=== PATIENT | male | born 1950 | race Two or more races ===

== ENCOUNTER 2021-06-25 05:59 | Inpatient (IN) | payer MEDICARE, OTHER ==
[~2021-06-25] VITALS: Ht 172.7 cm; Wt 49.9 kg
[2021-06-25 09:45] VITALS: BP 132/74
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
[2021-06-25] MEDS ORDERED: BLOOD SUGAR DIAGNOSTIC 1 EACH STRIP IN ONE (11:00)
[2021-06-25] MEDS ORDERED: LORA-259 PO (12:11)
[2021-06-25] MEDS ORDERED: LISI20TA30 PO (12:11)
[2021-06-25] MEDS ORDERED: HYDR-4303 PO (12:11)
[2021-06-25] MEDS ORDERED: QUET25TA PO (12:11)
[2021-06-25] MEDS: HYDROCODONE/APAP 5/325MG TABLET PO PRN ×2 (12:16→19:27)
[2021-06-25] MEDS ORDERED: LACT10SO3 PO (12:23)
[2021-06-25] MEDS: MAGNESIUM HYDROXIDE 30 ML UDC PO PRN (12:40)
[2021-06-25] MEDS: LORAZEPAM 0.5 MG TABLET PO PRN ×3 (13:57→23:03)
[2021-06-25 16:00] VITALS: BP 156/96
--- NOTE | 2021-06-25 19:27 | NUR ---
GPS RN NOTE PATIENT C/O 10/10 BACK PAIN. GIVEN NORCO 5/325 PRN FOR PAIN. WILL REASSESS.
[2021-06-25 20:00] VITALS: BP 161/96
[2021-06-25] MEDS: TEMAZEPAM 7.5 MG CAPSULE PO PRN (22:05)
--- NOTE | 2021-06-25 22:05 | NUR ---
gps rn note given Temazepam 7.5 at this time per patient request
--- NOTE | 2021-06-25 23:03 | NUR ---
gps rn note patient requested for his ativan. reports feeling anxious. given ativan 0.5.
[2021-06-26] MEDS: HYDROCODONE/APAP 5/325MG TABLET PO PRN ×3 (01:35→14:43)
--- NOTE | 2021-06-26 01:38 | NUR ---
gps rn note patient woke up c/o pain10/10. given norco 5/325. will reassess.
[2021-06-26] MEDS: LACTULOSE 10 G/15 ML UDC (PYXIS) PO PRN (03:48)
--- NOTE | 2021-06-26 03:49 | NUR ---
gps rn note patient requested for stool softener at this time. given the daily dose of lactulose 15 ml PRN. will continue to monitor.
[2021-06-26] MEDS: LORAZEPAM 0.5 MG TABLET PO PRN ×2 (06:19→10:32)
--- NOTE | 2021-06-26 06:19 | NUR ---
gps rn note patient pacing around. restless. requested ativan. given ativan 0.5 mg prn.
[2021-06-26 08:00] VITALS: BP 157/88
[2021-06-26 08:13] LABS: ALBUMIN 4.4 g/dL (3.4-5.0); BILIRUBIN,TOTAL 1.2 mg/dL (0.2-1.0); CALCIUM, SERUM 9.3 mg/dL (8.5-10.1); CREATININE 0.9 mg/dL (0.6-1.3); POTASSIUM 3.8 mmol/L (3.5-5.1); TOTAL PROTEIN, SERUM 8.1 g/dL (6.4-8.2)
[2021-06-26] MEDS: LISINOPRIL (20MG) 20 MG TABLET PO SCH (08:13)
[2021-06-26 08:15] LABS: CHOLESTEROL 195 mg/dL (<200); HDL CHOLESTEROL 96 mg/dL (40-60); LDL 76 mg/dL (0-99); TRIGLYCERIDES 86 mg/dL (30-150)
--- NOTE | 2021-06-26 08:24 | NUR ---
RN NOTES PT C/O GENERALIZED PAIN, SCALE 7/10 SCALE. PRN NORCO 5/325 MG PO GIVEN AT 0821. WILL CONTINUE TO MONITOR AND REASSESS.
--- NOTE | 2021-06-26 10:38 | NUR ---
GPS RN NOTES PT NOTED ANXIOUS AND WALKING AROUND WITH HIS WHEELCHAIR BACK AND FORT TO HIS ROOM AND HALLWAYS. PRN ATIVAN 0.5MG PO GIVEN AT 1032.
--- NOTE | 2021-06-26 14:45 | NUR ---
RN NOTES PT C/O BACK AND LEFT LEG PAIN, SCALE 6/10 SCALE. PRN NORCO 5/325 MG PO GIVEN AT 1443. WILL CONTINUE TO MONITOR AND REASSESS.
[2021-06-26 16:00] VITALS: BP 153/92
[2021-06-26] MEDS: QUETIAPINE FUMARATE 25 MG TABLET PO SCH (18:55)
[2021-06-26 20:00] VITALS: BP 148/80
[2021-06-26] MEDS: MIRTAZAPINE 15 MG TABLET PO SCH (21:02)
[2021-06-26] MEDS: TEMAZEPAM 7.5 MG CAPSULE PO PRN (21:09)
--- NOTE | 2021-06-26 21:09 | NUR ---
GPS-RN NOTES: INSOMNIA PATIENT C/O INABILITY TO SLEEP. PRN RESTORIL 7.5MG PO GIVEN. WILL CONTINUE TO MONITOR.
[2021-06-27] MEDS: QUETIAPINE FUMARATE 25 MG TABLET PO SCH ×2 (05:05→17:01)
[2021-06-27 08:00] VITALS: BP 144/83
[2021-06-27] MEDS: LISINOPRIL (20MG) 20 MG TABLET PO SCH (08:32)
[2021-06-27] MEDS: MAGNESIUM HYDROXIDE 30 ML UDC PO PRN (08:35)
--- NOTE | 2021-06-27 08:36 | NUR ---
MOM GIVEN. PT COMPLAINS OF CONSTIPATION.
[2021-06-27] MEDS: LACTULOSE 10 G/15 ML UDC (PYXIS) PO PRN (10:14)
--- NOTE | 2021-06-27 10:15 | NUR ---
LACTULOSE GIVEN. PT STILL COMPLAINS OF CONSTIPATION.
--- NOTE | 2021-06-27 10:50 | NUR ---
Initial D/C Plan: Pt plans to be D/C to a senior living facility. SW will work with the pt and the MD regarding appropriate discharge planning. SW will form a safe and proper discharge plan.
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
--- NOTE | 2021-06-27 11:08 | NUR ---
INFORMED DR CRYSTAL OF PT'S PAINFUL CONSTIPATION. DR CRYSTAL ORDERED STAT KUB, MIRALAX 17MG PO HS DAILY UNTIL BM. ORDERS PLACED.
--- NOTE | 2021-06-27 12:03 | NUR ---
D/C Planning: SW was notified that the pt has been accepted to [facility] ([facility]) [[address] [place] [address]; ). Pt agrees with this d/c plan.
[2021-06-27] MEDS: ENSURE ENLIVE CHOC 237 ML CAN PO SCH ×2 (12:54→16:21)
[2021-06-27] MEDS: LORAZEPAM 0.5 MG TABLET PO PRN (14:19)
--- NOTE | 2021-06-27 14:19 | NUR ---
RN NOTE: ANXIETY PT EXHIBITING INCREASED AGITATION AND ANXIETY. MEDICATED WITH ATIVAN 0.5 MG PO PRN
[2021-06-27 16:00] VITALS: BP 145/90
[2021-06-27 20:00] VITALS: BP 146/87
[2021-06-27] MEDS: MIRTAZAPINE 15 MG TABLET PO SCH (21:02)
[2021-06-27] MEDS: TEMAZEPAM 7.5 MG CAPSULE PO PRN (21:02)
[2021-06-27] MEDS ORDERED: POLYETHYLENE GLYCOL 3350 17 GM POWD.PACK PO SCH (22:00)
[2021-06-28] MEDS: HYDROCODONE/APAP 5/325MG TABLET PO PRN ×2 (00:10→11:03)
[2021-06-28] MEDS: LORAZEPAM 0.5 MG TABLET PO PRN ×2 (03:40→13:02)
[2021-06-28] MEDS: QUETIAPINE FUMARATE 25 MG TABLET PO SCH ×2 (06:08→17:04)
[2021-06-28 08:00] VITALS: BP 155/90
[2021-06-28] MEDS: ENSURE ENLIVE CHOC 237 ML CAN PO SCH ×4 (08:15→16:06)
[2021-06-28] MEDS: LISINOPRIL (20MG) 20 MG TABLET PO SCH (08:15)
[2021-06-28] MEDS: DOCUSATE SODIUM 100 MG CAPSULE PO SCH ×3 (08:49→16:06)
--- NOTE | 2021-06-28 09:00 | NUR ---
RN NOTE- PT ALERT ORIENTED TO PERSON PLACE PURPOSE, MAKES NEEDS KNOWN, MED COMPLIANT, PO INTAKE GOOD, PT FOCUS ON BM. STATES NO BM X TWO DAYS. COLACE STARTED. PT DENIES ALL. WITHDRAWN AND COOPERATIVE AMBULATING W FWW IN HALLS
--- NOTE | 2021-06-28 10:45 | NUR ---
RN NOTE- PT C/O CONTINUED CONSTIPATION . NO BM X TWO DAYS. BS HYPOACTIVE. DR DAVIES NOTIFIED. MIRALAX ORDERED ONE TIME DOSE.
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
[2021-06-28] MEDS: POLYETHYLENE GLYCOL 3350 17 GM POWD.PACK PO SCH ×2 (11:03→21:04)
--- NOTE | 2021-06-28 13:03 | NUR ---
RN NOTE- RESTLESSNESS AND ANXIETY. REQUESTED ATIVAN 0.5 MG GIVEN AT THIS TIME
[2021-06-28] MEDS: ACETAMINOPHEN 325 MG TABLET PO PRN (14:52)
[2021-06-28 16:02] VITALS: BP 153/75
[2021-06-28] MEDS: MAG HYDROX/AL HYDROX/SIMETH 30 ML UDC PO PRN (17:04)
--- NOTE | 2021-06-28 17:04 | NUR ---
RN NOTE- DYSPEPSIA NOTED. TOLD PT THAT I THINK HE'S HAVING CRAMPS BECAUSE OF THE STOOL SOFTENERS AND LAXATIVES. MAALOX 30 CC GIVEN
[2021-06-28 20:20] VITALS: BP 138/79
[2021-06-28] MEDS: MIRTAZAPINE 15 MG TABLET PO SCH (21:04)
[2021-06-28] MEDS: SENNOSIDES 8.6 MG TABLET PO SCH (21:04)
[2021-06-28] MEDS: TEMAZEPAM 7.5 MG CAPSULE PO PRN (22:45)
--- NOTE | 2021-06-28 22:46 | NUR ---
GPS-RN NOTES: INSOMNIA PATIENT C/O UNABLE TO SLEEP. PRN RESTORIL 7.5MG PO GIVEN. WILL CONTINUE TO MONITOR.
[2021-06-29] MEDS: ACETAMINOPHEN 325 MG TABLET PO PRN ×2 (06:02→22:34)
[2021-06-29] MEDS: ENSURE ENLIVE CHOC 237 ML CAN PO SCH ×3 (07:34→16:01)
[2021-06-29 08:00] VITALS: BP 154/94
[2021-06-29] MEDS: DOCUSATE SODIUM 100 MG CAPSULE PO SCH ×3 (08:23→16:03)
[2021-06-29] MEDS: LISINOPRIL (20MG) 20 MG TABLET PO SCH (08:23)
[2021-06-29] MEDS: QUETIAPINE FUMARATE 25 MG TABLET PO SCH (08:23)
--- NOTE | 2021-06-29 08:38 | NUR ---
PT COMPLAINS OF PAIN 7. NORCO 5/325 ADMINISTERED. WILL CONTINUE TO MONITOR.
[2021-06-29] MEDS: HYDROCODONE/APAP 5/325MG TABLET PO PRN ×2 (08:39→19:44)
[2021-06-29] MEDS: LORAZEPAM 0.5 MG TABLET PO PRN ×2 (10:31→16:25)
--- NOTE | 2021-06-29 10:35 | NUR ---
RN NOTE: ANXIETY PT EXHIBITING INCREASED AGITATION AND ANXIETY. MEDICATED WITH ATIVAN 0.5 MG PO PRN
[2021-06-29 16:00] VITALS: BP 130/70
--- NOTE | 2021-06-29 16:30 | NUR ---
RN NOTE: ANXIETY PT EXHIBITING INCREASED AGITATION AND ANXIETY. MEDICATED WITH ATIVAN 0.5 MG PO PRN
--- NOTE | 2021-06-29 19:30 | NUR ---
gps rn notes received lying comfortably,able to answer question correctly,ambulate with pushing wheelchair,med compliant per report,denies suicidal ideation,cooperative.will continue to monitor behavior and manage accordingly.
--- NOTE | 2021-06-29 19:44 | NUR ---
gps rn notes c/o mid lower back pain 5/10 on pain scale,norco 5/325mg,1 tab po given as ordered for moderate pain.
[2021-06-29 20:00] VITALS: BP 158/92
[2021-06-29] MEDS: POLYETHYLENE GLYCOL 3350 17 GM POWD.PACK PO SCH (21:11)
[2021-06-29] MEDS: SENNOSIDES 8.6 MG TABLET PO SCH (21:12)
[2021-06-29] MEDS: QUETIAPINE FUMARATE 100 MG TABLET PO SCH (21:15)
[2021-06-29] MEDS: TEMAZEPAM 7.5 MG CAPSULE PO PRN (21:20)
[2021-06-29] MEDS ORDERED: MIRTAZAPINE 15 MG TABLET PO SCH (22:00)
--- NOTE | 2021-06-29 22:34 | NUR ---
gps rn notes awake,c/o back pain,norco is not due yet,okay to have tylenol 650mg po for mild pain
--- NOTE | 2021-06-29 23:30 | NUR ---
gps rn notes patient says is blood sugar is low,accu-check was done and it was 119,snacks provided.
[2021-06-30] MEDS: HYDROCODONE/APAP 5/325MG TABLET PO PRN ×2 (00:52→18:45)
--- NOTE | 2021-06-30 00:52 | NUR ---
gps rn notes c/o mid back pain 7/10 on pain scale,norco 5/325mg,1 tab po given as ordered
[2021-06-30] MEDS: LORAZEPAM 0.5 MG TABLET PO PRN ×3 (04:52→16:23)
--- NOTE | 2021-06-30 04:52 | NUR ---
gps rn notes awake,appears anxious,ativan 0.5mg po given as ordered for anxiety
[2021-06-30 08:00] VITALS: BP 153/90
[2021-06-30] MEDS: ENSURE ENLIVE CHOC 237 ML CAN PO SCH ×3 (08:13→16:24)
[2021-06-30] MEDS: QUETIAPINE FUMARATE 25 MG TABLET PO SCH (08:13)
[2021-06-30] MEDS: DOCUSATE SODIUM 100 MG CAPSULE PO SCH ×3 (08:13→16:23)
[2021-06-30] MEDS: LISINOPRIL (20MG) 20 MG TABLET PO SCH (08:14)
[2021-06-30] MEDS: LACTULOSE 10 G/15 ML UDC (PYXIS) PO PRN (08:16)
--- NOTE | 2021-06-30 08:20 | NUR ---
Utilization Review Note: This tag writer left a detailed clinical review for assigned family caseworker, richard Alvares at [phone]. Authorization number : [id number] authorized so far are 06/23/21 until 06/30/21. Detailed clinical review was left at 0810 on voicemail of assigned family caseworker and more days were requested. Will await call back with approval from family caseworker.
--- NOTE | 2021-06-30 10:50 | NUR ---
gps pump attendant: notes pt still complaining of constipation and abdominal pain despite given laxatives and having a bowel movement. pt requesting for suppository. last kub done 3 days ago, aware of results. dr. mccurdy notified and made aware with order to do ct abd/pelvis with oral contrast. pt made aware and consent signed at 1115 radiology dept aware, spoke to myles and will provide oral contrast as stated. will continue to monitor.
[2021-06-30] MEDS ORDERED: DIATR MEGLU/DIATRIZOATE SODIUM 30 ML BOTTLE (GASTROGRAPHIN) ONE (11:26)
--- NOTE | 2021-06-30 14:01 | NUR ---
Probable cause hearing: Pt.'s 5250 hold was upheld on the grounds of Danger to Self and Gravely Disabled.
--- NOTE | 2021-06-30 15:10 | NUR ---
gps jacket preparer: notes taken down to ct scan via wheelchair accompanied by staff.
[2021-06-30] MEDS ORDERED: IOHEXOL-300 100 ML VIAL IV ONE (15:12)
[2021-06-30] MEDS ORDERED: IV NS 0.9% 250 ML IV ONE (15:13)
--- NOTE | 2021-06-30 15:40 | NUR ---
PER RN DEENA, CT ABDOMEN PELVIS IS WITH ORAL CONTRAST ONLY
--- NOTE | 2021-06-30 15:45 | NUR ---
gps remanufacturing technician: notes back from ct with staff via w/c. dr. murcia at bedside and talking to pt. will continue to monitor.
[2021-06-30 16:00] VITALS: BP 152/96
[2021-06-30] MEDS: ACETAMINOPHEN 325 MG TABLET PO PRN (16:23)
[2021-06-30 19:53] VITALS: BP 139/80
[2021-06-30 20:00] VITALS: BP 139/80
[2021-06-30] MEDS: POLYETHYLENE GLYCOL 3350 17 GM POWD.PACK PO SCH (21:13)
[2021-06-30] MEDS: SENNOSIDES 8.6 MG TABLET PO SCH (21:13)
[2021-06-30] MEDS: MIRTAZAPINE 15 MG TABLET PO SCH (21:14)
[2021-06-30] MEDS: QUETIAPINE FUMARATE 100 MG TABLET PO SCH (22:13)
[2021-07-01] MEDS: HYDROCODONE/APAP 5/325MG TABLET PO PRN ×3 (01:54→22:00)
--- NOTE | 2021-07-01 01:58 | NUR ---
RN NOTE: PAIN PATIENT C/O BACK PAIN 05/20 & REQUESTED TO TAKE NORCO. PRN NORCO 5-325 MG 1 TAB PO ADMINISTERED. VITALS ARE 154/95, 85, 18, 97.3, 97% AT RA. WILL CONTINUE TO MONITOR.
[2021-07-01 08:00] VITALS: BP 155/94
[2021-07-01] MEDS: ENSURE ENLIVE CHOC 237 ML CAN PO SCH ×3 (08:00→17:30)
[2021-07-01] MEDS: LACTULOSE 10 G/15 ML UDC (PYXIS) PO PRN (09:03)
--- NOTE | 2021-07-01 09:03 | NUR ---
given lactulose for c/o severe constipation
[2021-07-01] MEDS: DOCUSATE SODIUM 100 MG CAPSULE PO SCH ×3 (09:38→17:28)
[2021-07-01] MEDS: LISINOPRIL (20MG) 20 MG TABLET PO SCH (09:38)
[2021-07-01] MEDS: QUETIAPINE FUMARATE 100 MG TABLET PO SCH ×2 (09:39→21:01)
--- NOTE | 2021-07-01 10:38 | NUR ---
given dul. supp. kush c/o severe constipation.
[2021-07-01] MEDS ORDERED: BISACODYL SUPP (10 MG) 10 MG/SUPP.RECT SUPP.RECT RC PRN (11:00)
[2021-07-01] MEDS ORDERED: NA PHOS,M-B/NA PHOS,DI-BA 1 EA ENEMA RC PRN (11:00)
--- NOTE | 2021-07-01 11:30 | NUR ---
expeled portion of supp.although advised to hold for 20 minutes,nobm.
[2021-07-01] MEDS: LORAZEPAM 0.5 MG TABLET PO PRN ×2 (13:27→23:53)
--- NOTE | 2021-07-01 13:28 | NUR ---
given ativan for nerves.
--- NOTE | 2021-07-01 15:18 | NUR ---
given norco for back and leg pain.
[2021-07-01 16:00] VITALS: BP 145/85
[2021-07-01 20:16] VITALS: BP 140/74
[2021-07-01] MEDS: MIRTAZAPINE 15 MG TABLET PO SCH (21:01)
[2021-07-01] MEDS: POLYETHYLENE GLYCOL 3350 17 GM POWD.PACK PO SCH (21:04)
[2021-07-01] MEDS: SENNOSIDES 8.6 MG TABLET PO SCH (21:04)
--- NOTE | 2021-07-01 22:00 | NUR ---
prn norco given for pain will continue to monitor.
--- NOTE | 2021-07-02 | NUR ---
prn ativan given for anxiety will continue to monitor.
[2021-07-02 08:00] VITALS: BP 133/91
[2021-07-02] MEDS: ENSURE ENLIVE CHOC 237 ML CAN PO SCH ×3 (09:05→16:10)
[2021-07-02] MEDS: LISINOPRIL (20MG) 20 MG TABLET PO SCH (09:06)
[2021-07-02] MEDS: DOCUSATE SODIUM 100 MG CAPSULE PO SCH ×3 (09:06→16:39)
[2021-07-02] MEDS: QUETIAPINE FUMARATE 100 MG TABLET PO SCH ×2 (09:06→21:11)
[2021-07-02] MEDS: HYDROCODONE/APAP 5/325MG TABLET PO PRN ×3 (09:50→23:16)
[2021-07-02] MEDS: LORAZEPAM 0.5 MG TABLET PO PRN ×3 (09:50→22:23)
--- NOTE | 2021-07-02 11:25 | NUR ---
PIPE BOWL PAINT TRIMMER Notes: Patient complained of Back Pain @ 0950 on 07/02/2021, Patient rated pain as 9/10. Issued Patient PRN [place] 5-325 mg. Reassessed pain @ 1050, patient stated pain had significantly subsided to 1/10 and patient feels comfortable at this time.
--- NOTE | 2021-07-02 11:27 | NUR ---
Additional Notes: Patient stated he felt overwhelmed due to pain and anxious issued patient PRN Ativan 0.5 mg @ 0950 on 07/02/2021. Reassessed patient @ 1050 patient stated he felt much better, less worried at this time, pain has significantly subsided and he feels comfortable.
[2021-07-02 16:00] VITALS: BP 138/78
--- NOTE | 2021-07-02 18:27 | NUR ---
Patient complained of anxiety @ 1814 offered and issued PRN Ativan 0.5 mg @ 1817. Will continue to monitor patient to see effectiveness of PRN.
--- NOTE | 2021-07-02 18:57 | NUR ---
re-evaluating Ativan 0.5 mg give @ 1817, patient stated he feels much better and more relaxed. Patient is now comfortably resting in room and has no complaints.
[2021-07-02 20:00] VITALS: BP 128/69
--- NOTE | 2021-07-02 21:00 | NUR ---
GPS-RN NOTES: PATIENT REFUSED SCHEDULED MIRALAX FOR TONIGHT. PATIENT STATED "I DON'T NEED IT NOW". WILL CONTINUE TO MONITOR.
[2021-07-02] MEDS: MIRTAZAPINE 15 MG TABLET PO SCH (21:11)
[2021-07-02] MEDS: POLYETHYLENE GLYCOL 3350 17 GM POWD.PACK PO SCH (21:11)
[2021-07-02] MEDS: SENNOSIDES 8.6 MG TABLET PO SCH (21:11)
--- NOTE | 2021-07-02 22:23 | NUR ---
GPS-RN NOTES: ANXIETY PATIENT IS ANXIOUS AND RESTLESS. PRN ATIVAN 0.5MG PO GIVEN ORDERED. WILL CONTINUE TO MONITOR FOR PATIENT'S SAFETY.
--- NOTE | 2021-07-02 23:16 | NUR ---
GPS-RN NOTES: BACK PAIN PATIENT C/O UPPER BACK PAIN ON A PAIN SCALE OF 7/10. PRN NORCO 5/25MG PO GIVEN ORDERED. WILL CONTINUE TO MONITOR AND REASSESS.
[2021-07-03] MEDS: TEMAZEPAM 7.5 MG CAPSULE PO PRN ×2 (01:01→23:00)
--- NOTE | 2021-07-03 01:02 | NUR ---
GPS-RN NOTES: INSOMNIA PATIENT C/O INABILITY TO SLEEP. PRN RESTORIL 15MG PO ORDERED PER PT'S REQUEST. WILL CONTINUE TO MONITOR.
[2021-07-03 08:00] VITALS: BP 152/97
[2021-07-03] MEDS: ENSURE ENLIVE CHOC 237 ML CAN PO SCH ×3 (08:02→16:14)
[2021-07-03] MEDS: LISINOPRIL (20MG) 20 MG TABLET PO SCH (08:07)
[2021-07-03] MEDS: QUETIAPINE FUMARATE 100 MG TABLET PO SCH ×2 (08:07→22:08)
[2021-07-03] MEDS: DOCUSATE SODIUM 100 MG CAPSULE PO SCH ×3 (08:07→16:15)
[2021-07-03] MEDS: HYDROCODONE/APAP 5/325MG TABLET PO PRN ×2 (09:31→21:01)
[2021-07-03 16:00] VITALS: BP 145/76
--- NOTE | 2021-07-03 16:15 | NUR ---
PT REFUSED COLACE.
[2021-07-03 20:00] VITALS: BP 157/87
[2021-07-03] MEDS: LORAZEPAM 0.5 MG TABLET PO PRN (20:15)
--- NOTE | 2021-07-03 20:15 | NUR ---
GPS RN NOTE PATIENT REQUESTING ATIVAN. GIVEN ATIVAN 0.5 PRN AT THIS TIME.
--- NOTE | 2021-07-03 21:00 | NUR ---
gps rn notes patient c/o pain in the back 05/20. given norco 5-325 prn. will reassess.
[2021-07-03] MEDS: SENNOSIDES 8.6 MG TABLET PO SCH (22:00)
[2021-07-03] MEDS: POLYETHYLENE GLYCOL 3350 17 GM POWD.PACK PO SCH (22:00)
[2021-07-03] MEDS: MIRTAZAPINE 15 MG TABLET PO SCH (22:08)
--- NOTE | 2021-07-03 22:16 | NUR ---
gps rn note patient refused scheduled 2200 constipation medications. senokot was retured to Retidoc but the miralax powdeered packet had a whole on it hence I was unable to return. will dispose in proper disposal bin.
--- NOTE | 2021-07-03 23:00 | NUR ---
GPS RN NOTE PATIENT REQUESTED SLEEPING MEDICATION GIVEN TEMAZEPAM 15 MG AT THIS TIME.
[2021-07-04] MEDS: LORAZEPAM 0.5 MG TABLET PO PRN ×3 (00:33→20:29)
--- NOTE | 2021-07-04 00:35 | NUR ---
gps rn notes patient reporting having panic attack at this time. seems restless, pacing around. given ativan 0.5 mg at this time. will cont. to monitor.
[2021-07-04] MEDS: HYDROCODONE/APAP 5/325MG TABLET PO PRN ×4 (04:13→23:51)
--- NOTE | 2021-07-04 04:13 | NUR ---
gps rn note patient c/o 7/10 pain, given norco 5-325 at this time. will reassess.
[2021-07-04 08:00] VITALS: BP 142/88
[2021-07-04] MEDS: ENSURE ENLIVE CHOC 237 ML CAN PO SCH ×3 (08:38→16:46)
[2021-07-04] MEDS: FLUVOXAMINE MALEATE 50 MG TABLET PO SCH ×3 (08:39→16:46)
[2021-07-04] MEDS: DOCUSATE SODIUM 100 MG CAPSULE PO SCH ×3 (08:40→16:46)
[2021-07-04] MEDS: QUETIAPINE FUMARATE 100 MG TABLET PO SCH ×2 (08:42→21:26)
[2021-07-04] MEDS: LISINOPRIL (20MG) 20 MG TABLET PO SCH (08:42)
--- NOTE | 2021-07-04 10:28 | NUR ---
gps rn note patient c/o 9/10 pain, given norco 5-325 at this time. will reassess.
--- NOTE | 2021-07-04 11:12 | NUR ---
WOUND CARE CONSULT: RECEIVED REQUEST FOR WOUND CONSULT FROM RN FOR PAINFUL CALLUSES TO FEET, PRESENT ON ADMISSION. RECOMMEND DPM CONSULT. DR CARROLL NOTIFIED. WILL SEE PRN.
--- NOTE | 2021-07-04 14:32 | NUR ---
GPS RN NOTE PATIENT REQUESTING ATIVAN. GIVEN ATIVAN 0.5 PRN AT THIS TIME.
[2021-07-04 16:00] VITALS: BP 151/78
[2021-07-04 20:00] VITALS: BP 132/97
--- NOTE | 2021-07-04 20:00 | NUR ---
awake and alert smiling using the wheelchair to ambulate in the hallway reminded me that he does NOT want any Laxatives tonight Asking for [place] specifically for his back pain informed him he had NORCO at 1800 and to be given Q6 hours due 0000. He was okay with this time. Asked if he could be given his ATIVAN now Ativan given at 20:30. He went to bed at 9PM after the ATIVAN was given.
[2021-07-04] MEDS: TEMAZEPAM 7.5 MG CAPSULE PO PRN (21:26)
[2021-07-04] MEDS: MIRTAZAPINE 15 MG TABLET PO SCH (21:26)
[2021-07-04] MEDS: POLYETHYLENE GLYCOL 3350 17 GM POWD.PACK PO SCH (21:30)
[2021-07-04] MEDS: SENNOSIDES 8.6 MG TABLET PO SCH (21:31)
[2021-07-04 22:21] VITALS: BP 132/76
[2021-07-05] MEDS: ENSURE ENLIVE CHOC 237 ML CAN PO SCH ×3 (07:46→16:11)
[2021-07-05 08:00] VITALS: BP 154/99
[2021-07-05] MEDS: FLUVOXAMINE MALEATE 50 MG TABLET PO SCH ×3 (08:41→16:13)
[2021-07-05] MEDS: LISINOPRIL (20MG) 20 MG TABLET PO SCH (08:41)
[2021-07-05] MEDS: QUETIAPINE FUMARATE 100 MG TABLET PO SCH ×2 (08:42→21:03)
[2021-07-05] MEDS: DOCUSATE SODIUM 100 MG CAPSULE PO SCH ×3 (08:43→16:10)
[2021-07-05] MEDS: HYDROCODONE/APAP 5/325MG TABLET PO PRN ×2 (09:13→21:02)
--- NOTE | 2021-07-05 09:13 | NUR ---
gps rn note patient c/o 7/10 pain, given norco 5-325 at this time. will reassess.
[2021-07-05] MEDS: MAG HYDROX/AL HYDROX/SIMETH 30 ML UDC PO PRN (13:52)
--- NOTE | 2021-07-05 13:52 | NUR ---
GPS RN NOTE. PT COMPLAINS OF INDIGESTION. MAALOX ADMINISTERED. WILL CONTINUE TO MONITOR.
[2021-07-05 16:00] VITALS: BP 132/74
[2021-07-05] MEDS: AMMONIUM LACTATE 227 GM BOTTLE TP SCH (16:15)
[2021-07-05] MEDS: LORAZEPAM 0.5 MG TABLET PO PRN ×2 (18:28→19:42)
--- NOTE | 2021-07-05 18:28 | NUR ---
GPS RN NOTE PT FEELING ANXIOUS, ASKED FOR ATIVAN. ATIVAN ADMINISTERED. WILL CONTINUE TO MONITOR.
[2021-07-05 19:45] VITALS: BP 160/86
[2021-07-05] MEDS: SENNOSIDES 8.6 MG TABLET PO SCH (21:02)
[2021-07-05] MEDS: POLYETHYLENE GLYCOL 3350 17 GM POWD.PACK PO SCH (21:02)
[2021-07-05] MEDS: MIRTAZAPINE 15 MG TABLET PO SCH (21:02)
[2021-07-05] MEDS: TEMAZEPAM 7.5 MG CAPSULE PO PRN (23:40)
[2021-07-06] MEDS: HYDROCODONE/APAP 5/325MG TABLET PO PRN ×3 (05:54→20:02)
[2021-07-06 08:00] VITALS: BP 157/90
[2021-07-06] MEDS: AMMONIUM LACTATE 227 GM BOTTLE TP SCH ×2 (08:07→16:04)
[2021-07-06] MEDS: ENSURE ENLIVE CHOC 237 ML CAN PO SCH ×3 (08:07→16:00)
[2021-07-06] MEDS: LISINOPRIL (20MG) 20 MG TABLET PO SCH (08:08)
[2021-07-06] MEDS: DOCUSATE SODIUM 100 MG CAPSULE PO SCH ×3 (08:09→16:02)
[2021-07-06] MEDS: FLUVOXAMINE MALEATE 50 MG TABLET PO SCH ×3 (08:09→16:02)
[2021-07-06] MEDS: QUETIAPINE FUMARATE 100 MG TABLET PO SCH ×2 (08:09→21:53)
--- NOTE | 2021-07-06 09:56 | NUR ---
gps rn note patient c/o 7/10 pain, given norco 5-325 at this time. will reassess.
[2021-07-06] MEDS: LORAZEPAM 0.5 MG TABLET PO PRN ×3 (11:03→23:36)
--- NOTE | 2021-07-06 11:04 | NUR ---
GPS RN NOTE PT FEELING ANXIOUS, ASKED FOR ATIVAN. ATIVAN ADMINISTERED. WILL CONTINUE TO MONITOR.
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
[2021-07-06] MEDS: MAG HYDROX/AL HYDROX/SIMETH 30 ML UDC PO PRN (12:01)
--- NOTE | 2021-07-06 12:02 | NUR ---
GPS RN NOTE. PT COMPLAINS OF INDIGESTION. MAALOX ADMINISTERED. WILL CONTINUE TO MONITOR.
--- NOTE | 2021-07-06 15:51 | NUR ---
GPS RN NOTE PT FEELING ANXIOUS, ASKED FOR ATIVAN. ATIVAN ADMINISTERED. WILL CONTINUE TO MONITOR
[2021-07-06 16:00] VITALS: BP 152/90
--- NOTE | 2021-07-06 19:39 | NUR ---
RN NOTES: RECEIVED PATIENT AWAKE IN ROOM, NO COMPLAIN OF PAIN AND DISCOMFORT, BED IN LOW POSITION, CALL LIGHTS WITHIN REACH, NO CHANGES IN BEHAVIOR OBSERVED, WILL CONTINUE TO MONITOR.
[2021-07-06 20:34] VITALS: BP 111/62
[2021-07-06] MEDS: MIRTAZAPINE 15 MG TABLET PO SCH (21:52)
[2021-07-06] MEDS: ZOLPIDEM TARTRATE 5 MG TABLET PO PRN (22:28)
[2021-07-06] MEDS: POLYETHYLENE GLYCOL 3350 17 GM POWD.PACK PO SCH (22:40)
[2021-07-06] MEDS: SENNOSIDES 8.6 MG TABLET PO SCH (22:40)
[2021-07-07] MEDS: HYDROCODONE/APAP 5/325MG TABLET PO PRN ×3 (02:13→15:13)
[2021-07-07] MEDS: LORAZEPAM 0.5 MG TABLET PO PRN ×3 (05:38→18:12)
[2021-07-07 08:00] VITALS: BP 150/90
[2021-07-07] MEDS: ENSURE ENLIVE CHOC 237 ML CAN PO SCH ×3 (08:10→16:10)
[2021-07-07] MEDS: FLUVOXAMINE MALEATE 50 MG TABLET PO SCH ×3 (09:10→16:10)
[2021-07-07] MEDS: LISINOPRIL (20MG) 20 MG TABLET PO SCH (09:10)
[2021-07-07] MEDS: DOCUSATE SODIUM 100 MG CAPSULE PO SCH ×3 (09:10→16:10)
[2021-07-07] MEDS: QUETIAPINE FUMARATE 100 MG TABLET PO SCH ×2 (09:10→21:26)
[2021-07-07] MEDS: AMMONIUM LACTATE 227 GM BOTTLE TP SCH ×2 (09:11→16:11)
[2021-07-07 16:00] VITALS: BP 111/73
[2021-07-07 20:10] VITALS: BP 154/80
[2021-07-07] MEDS: MIRTAZAPINE 15 MG TABLET PO SCH (21:25)
[2021-07-07] MEDS: POLYETHYLENE GLYCOL 3350 17 GM POWD.PACK PO SCH (21:25)
[2021-07-07] MEDS: SENNOSIDES 8.6 MG TABLET PO SCH (21:26)
[2021-07-07 21:30] VITALS: BP 128/80
[2021-07-07] MEDS: ZOLPIDEM TARTRATE 5 MG TABLET PO PRN (22:50)
--- NOTE | 2021-07-07 22:52 | NUR ---
GPS-RN NOTES: INSOMNIA PATIENT C/O INABILITY TO SLEEP. PRN AMBIEN 5MG PO ORDERED PER PT'S REQUEST. WILL CONTINUE TO MONITOR.
[2021-07-08 08:00] VITALS: BP 152/98
[2021-07-08] MEDS: ENSURE ENLIVE CHOC 237 ML CAN PO SCH ×3 (08:04→17:15)
[2021-07-08] MEDS: FLUVOXAMINE MALEATE 50 MG TABLET PO SCH ×3 (08:07→17:16)
[2021-07-08] MEDS: DOCUSATE SODIUM 100 MG CAPSULE PO SCH ×3 (08:08→17:16)
[2021-07-08] MEDS: QUETIAPINE FUMARATE 100 MG TABLET PO SCH ×2 (08:08→21:22)
[2021-07-08] MEDS: AMMONIUM LACTATE 227 GM BOTTLE TP SCH ×2 (08:08→17:15)
[2021-07-08] MEDS: LISINOPRIL (20MG) 20 MG TABLET PO SCH (08:08)
[2021-07-08] MEDS: HYDROCODONE/APAP 5/325MG TABLET PO PRN ×2 (08:10→14:24)
[2021-07-08] MEDS: LORAZEPAM 0.5 MG TABLET PO PRN ×2 (09:42→15:29)
[2021-07-08 16:00] VITALS: BP 156/90
[2021-07-08 19:59] VITALS: BP 141/86
[2021-07-08] MEDS: SENNOSIDES 8.6 MG TABLET PO SCH (21:21)
[2021-07-08] MEDS: POLYETHYLENE GLYCOL 3350 17 GM POWD.PACK PO SCH (21:21)
[2021-07-08] MEDS: MIRTAZAPINE 15 MG TABLET PO SCH (21:22)
[2021-07-08] MEDS: ZOLPIDEM TARTRATE 5 MG TABLET PO PRN (22:13)
[2021-07-09] MEDS: HYDROCODONE/APAP 5/325MG TABLET PO PRN ×3 (02:08→14:02)
[2021-07-09 08:00] VITALS: BP 152/89
[2021-07-09] MEDS: ENSURE ENLIVE CHOC 237 ML CAN PO SCH ×3 (08:08→16:20)
[2021-07-09] MEDS: QUETIAPINE FUMARATE 100 MG TABLET PO SCH ×2 (08:11→21:39)
[2021-07-09] MEDS: FLUVOXAMINE MALEATE 50 MG TABLET PO SCH ×3 (08:12→16:21)
[2021-07-09] MEDS: DOCUSATE SODIUM 100 MG CAPSULE PO SCH ×3 (08:12→16:22)
[2021-07-09] MEDS: LISINOPRIL (20MG) 20 MG TABLET PO SCH (08:12)
[2021-07-09] MEDS: AMMONIUM LACTATE 227 GM BOTTLE TP SCH ×2 (08:21→16:22)
[2021-07-09] MEDS: LORAZEPAM 0.5 MG TABLET PO PRN ×2 (10:32→16:21)
[2021-07-09 16:00] VITALS: BP 135/86
[2021-07-09 20:00] VITALS: BP 134/76
[2021-07-09] MEDS: MIRTAZAPINE 15 MG TABLET PO SCH (21:39)
[2021-07-09] MEDS: SENNOSIDES 8.6 MG TABLET PO SCH (21:39)
[2021-07-09] MEDS: POLYETHYLENE GLYCOL 3350 17 GM POWD.PACK PO SCH (21:39)
[2021-07-09] MEDS: ZOLPIDEM TARTRATE 5 MG TABLET PO PRN (22:35)
--- NOTE | 2021-07-09 23:00 | NUR ---
GPS-RN NOTES: INSOMNIA PATIENT C/O INABILITY TO SLEEP. PRN AMBIEN 5MG PO ORDERED PER PT'S REQUEST. WILL CONTINUE TO MONITOR.
[2021-07-10] MEDS: HYDROCODONE/APAP 5/325MG TABLET PO PRN ×4 (02:30→20:14)
[2021-07-10] MEDS: LORAZEPAM 0.5 MG TABLET PO PRN ×4 (06:39→22:26)
--- NOTE | 2021-07-10 06:40 | NUR ---
GPS-RN NOTES: ANXIETY PATIENT IS ANXIOUS AND RESTLESS. PRN ATIVAN 0.5MG PO GIVEN ORDERED. WILL CONTINUE TO MONITOR FOR PATIENT'S SAFETY.
[2021-07-10 08:08] VITALS: BP 144/97
[2021-07-10] MEDS: DOCUSATE SODIUM 100 MG CAPSULE PO SCH ×3 (08:11→16:13)
[2021-07-10] MEDS: ENSURE ENLIVE CHOC 237 ML CAN PO SCH ×3 (08:11→16:13)
[2021-07-10] MEDS: LISINOPRIL (20MG) 20 MG TABLET PO SCH (08:11)
[2021-07-10] MEDS: QUETIAPINE FUMARATE 100 MG TABLET PO SCH ×2 (08:11→21:15)
[2021-07-10] MEDS: FLUVOXAMINE MALEATE 50 MG TABLET PO SCH ×3 (08:12→16:13)
[2021-07-10] MEDS: AMMONIUM LACTATE 227 GM BOTTLE TP SCH ×2 (08:16→16:19)
--- NOTE | 2021-07-10 09:00 | NUR ---
RN NOTE- PT IN BRITT AMBULATING W ASSISTIVE DEVICE, PO INTAKE GOOD, CLEAN SHOWERED GROOMING, MED COMPLIANT , BACK PAIN DECREASED W KIRBY, PT DENIES AL AT PRESENT
--- NOTE | 2021-07-10 11:26 | NUR ---
RN NOTE- C/O ANXIETY. ATIVAN 0.5 MG GIVEN
--- NOTE | 2021-07-10 12:48 | NUR ---
RN NOTE- JEROMY EFFECTIVE
[2021-07-10 16:18] VITALS: BP 151/88
--- NOTE | 2021-07-10 18:15 | NUR ---
RN NOTE- PT W ANXIETY. ATIVAN 0.5 MG GIVEN
[2021-07-10 20:00] VITALS: BP 140/98
[2021-07-10] MEDS: POLYETHYLENE GLYCOL 3350 17 GM POWD.PACK PO SCH ×2 (21:13→21:22)
[2021-07-10] MEDS: SENNOSIDES 8.6 MG TABLET PO SCH (21:14)
[2021-07-10] MEDS: MIRTAZAPINE 15 MG TABLET PO SCH (21:15)
[2021-07-11] MEDS: ZOLPIDEM TARTRATE 5 MG TABLET PO PRN (00:06)
[2021-07-11] MEDS: HYDROCODONE/APAP 5/325MG TABLET PO PRN ×4 (02:38→20:06)
[2021-07-11] MEDS: LORAZEPAM 0.5 MG TABLET PO PRN ×4 (04:25→22:03)
--- NOTE | 2021-07-11 04:40 | NUR ---
CLOSING NOTES: ALERT AND ORIENTATED x3 DRUG SEEKER NORJIN AND ATIVAN. STATES HE HAS A BAD BACK AND THESE MEDICATIONS HELP. HE WILL ASK THE TIMES WHEN HE IS TO RECEIVE THE NEXT PRN MEDICATION AND TELL THE NURSE TO BRING IT IN. HE IS AMBULATING THE CORRIDOR STEADY ONHIS LEGS USINF A WHEEL CHAIR FOR BALANCE AT TIMES. HE IS CLEAN AND NEAT AND COOPERATIVE
[2021-07-11 08:00] VITALS: BP 162/102
[2021-07-11] MEDS: DOCUSATE SODIUM 100 MG CAPSULE PO SCH ×3 (08:13→16:50)
[2021-07-11] MEDS: ENSURE ENLIVE CHOC 237 ML CAN PO SCH ×3 (08:13→16:50)
[2021-07-11] MEDS: QUETIAPINE FUMARATE 100 MG TABLET PO SCH ×2 (08:13→21:04)
[2021-07-11] MEDS: LISINOPRIL (20MG) 20 MG TABLET PO SCH (08:14)
[2021-07-11] MEDS: FLUVOXAMINE MALEATE 50 MG TABLET PO SCH ×3 (08:14→16:50)
[2021-07-11] MEDS: AMMONIUM LACTATE 227 GM BOTTLE TP SCH ×2 (08:16→17:44)
--- NOTE | 2021-07-11 09:00 | NUR ---
RN NOTE- PT QUIET THIS MORNING , MINIMAL INTERACTION, PO INTAKE GOOD, CLEAN SHOWERED GROOMING, MED COMPLIANT , BACK PAIN DECREASED W NORCO, PT DENIES ALL AT PRESENT
--- NOTE | 2021-07-11 10:00 | NUR ---
RN NOTE- ANXIOUSNESS. ATIVAN 0.5 MG GIVEN
[2021-07-11 16:00] VITALS: BP 156/89
--- NOTE | 2021-07-11 16:04 | NUR ---
RN NOTE- RESTLESSNESS. ATIVAN 0.5 MG GIVEN
[2021-07-11 20:00] VITALS: BP 152/85
[2021-07-11] MEDS: POLYETHYLENE GLYCOL 3350 17 GM POWD.PACK PO SCH (21:02)
[2021-07-11] MEDS: MIRTAZAPINE 15 MG TABLET PO SCH (21:04)
[2021-07-11] MEDS: SENNOSIDES 8.6 MG TABLET PO SCH ×2 (21:05→21:09)
[2021-07-12] MEDS: HYDROCODONE/APAP 5/325MG TABLET PO PRN ×4 (02:01→22:31)
--- NOTE | 2021-07-12 04:29 | NUR ---
CLOSING NOTES BLADIMIR IS ALERT AND ORIENTED THIS SHIFT. AMBULATES THE HALLWAY WITH STEADY GATE. MEDS SEEKING ATIVAN AND NORCO. NORCO GIVEN X 2, LAST DOSE AT 0200, EFFECTIVE ATIVAN GIVEN X2, TO BE GIVEN AGAIN AT 0500 PER PATIENT'S REQUEST. RESPIRATION IS EASY AND UNLABORED.
[2021-07-12] MEDS: LORAZEPAM 0.5 MG TABLET PO PRN ×4 (04:51→20:20)
[2021-07-12] MEDS: ENSURE ENLIVE CHOC 237 ML CAN PO SCH ×3 (07:55→16:04)
[2021-07-12 08:00] VITALS: BP 154/98
[2021-07-12] MEDS: LISINOPRIL (20MG) 20 MG TABLET PO SCH (08:08)
[2021-07-12] MEDS: FLUVOXAMINE MALEATE 50 MG TABLET PO SCH ×3 (08:08→16:06)
[2021-07-12] MEDS: QUETIAPINE FUMARATE 100 MG TABLET PO SCH ×2 (08:08→21:07)
[2021-07-12] MEDS: DOCUSATE SODIUM 100 MG CAPSULE PO SCH ×3 (08:08→16:11)
[2021-07-12] MEDS: AMMONIUM LACTATE 227 GM BOTTLE TP SCH ×2 (08:09→16:08)
--- NOTE | 2021-07-12 08:18 | NUR ---
RN NOTE- PT COMPLAINS OF GENERALIZED PAIN OF 7. NORCO 5 325 GIVEN. WILL REASSESS.
--- NOTE | 2021-07-12 10:36 | NUR ---
RN NOTE- ANXIOUSNESS. ATIVAN 0.5 MG GIVEN. WILL CONTINUE TO MONITOR.
--- NOTE | 2021-07-12 15:03 | NUR ---
RN NOTE- ANXIOUSNESS. ATIVAN 0.5 MG GIVEN. WILL CONTINUE TO MONITOR.
[2021-07-12 16:00] VITALS: BP 155/94
[2021-07-12] MEDS: SENNOSIDES 8.6 MG TABLET PO SCH (21:06)
[2021-07-12] MEDS: POLYETHYLENE GLYCOL 3350 17 GM POWD.PACK PO SCH (21:06)
[2021-07-12] MEDS: MIRTAZAPINE 15 MG TABLET PO SCH (21:07)
[2021-07-12] MEDS: ZOLPIDEM TARTRATE 5 MG TABLET PO PRN ×3 (21:07→22:30)
[2021-07-12 21:14] VITALS: BP 161/90
[2021-07-13] MEDS: LORAZEPAM 0.5 MG TABLET PO PRN ×5 (00:44→18:44)
[2021-07-13] MEDS: HYDROCODONE/APAP 5/325MG TABLET PO PRN ×3 (03:20→15:35)
[2021-07-13 08:00] VITALS: BP 156/90
[2021-07-13] MEDS: FLUVOXAMINE MALEATE 50 MG TABLET PO SCH ×2 (08:31→16:38)
[2021-07-13] MEDS: DOCUSATE SODIUM 100 MG CAPSULE PO SCH ×3 (08:31→16:39)
[2021-07-13] MEDS: QUETIAPINE FUMARATE 100 MG TABLET PO SCH ×2 (08:32→21:07)
[2021-07-13] MEDS: ENSURE ENLIVE CHOC 237 ML CAN PO SCH ×3 (08:32→16:38)
[2021-07-13] MEDS: LISINOPRIL (20MG) 20 MG TABLET PO SCH (08:32)
[2021-07-13] MEDS: AMMONIUM LACTATE 227 GM BOTTLE TP SCH ×2 (08:32→16:39)
--- NOTE | 2021-07-13 09:31 | NUR ---
gps rn note patient c/o 9/10 pain, given norco 5-325 at this time. will reassess.
--- NOTE | 2021-07-13 10:40 | NUR ---
RN NOTE- ANXIOUSNESS. ATIVAN 0.5 MG GIVEN. WILL CONTINUE TO MONITOR.
--- NOTE | 2021-07-13 11:05 | NUR ---
D/C Planning: SW contacted admissions at [facility] ([facility]) [[address] [place] [address]; ). Pt has been accepted the facility. SW notified the facility that the pt will be D/C tomorrow. SW was notified that the pt will need a rapid Covid test prior to admission.
--- NOTE | 2021-07-13 12:23 | NUR ---
Probable Cause Hearing: Pt's 5250 hold upheld on the grounds of grave disability.
--- NOTE | 2021-07-13 14:40 | NUR ---
RN NOTE- ANXIOUSNESS. ATIVAN 0.5 MG GIVEN. WILL CONTINUE TO MONITOR.
--- NOTE | 2021-07-13 15:35 | NUR ---
patient c/o 9/10 pain, given norco 5-325 at this time. will reassess.
[2021-07-13 16:00] VITALS: BP 154/90
--- NOTE | 2021-07-13 18:44 | NUR ---
RN NOTE- ANXIOUSNESS. ATIVAN 0.5 MG GIVEN. WILL CONTINUE TO MONITOR.
[2021-07-13 20:00] VITALS: BP 148/84
[2021-07-13] MEDS: POLYETHYLENE GLYCOL 3350 17 GM POWD.PACK PO SCH (21:06)
[2021-07-13] MEDS: SENNOSIDES 8.6 MG TABLET PO SCH (21:07)
[2021-07-13] MEDS: MIRTAZAPINE 15 MG TABLET PO SCH (21:07)
[2021-07-13] MEDS: ZOLPIDEM TARTRATE 5 MG TABLET PO PRN (22:09)
--- NOTE | 2021-07-13 22:10 | NUR ---
GPS-RN NOTES: INSOMNIA PATIENT C/O INABILITY TO SLEEP. PRN AMBIEN 5MG PO ORDERED PER PT'S REQUEST. WILL CONTINUE TO MONITOR.
[2021-07-14] MEDS: LORAZEPAM 0.5 MG TABLET PO PRN ×3 (02:07→19:44)
--- NOTE | 2021-07-14 02:08 | NUR ---
GPS-RN NOTES: ANXIETY PATIENT IS ANXIOUS AND RESTLESS. PRN ATIVAN 0.5MG PO GIVEN ORDERED. WILL CONTINUE TO MONITOR FOR PATIENT'S SAFETY.
[2021-07-14] MEDS: HYDROCODONE/APAP 5/325MG TABLET PO PRN ×3 (03:49→16:55)
[2021-07-14 08:00] VITALS: BP 157/90
[2021-07-14] MEDS: QUETIAPINE FUMARATE 100 MG TABLET PO SCH ×2 (09:16→21:21)
[2021-07-14] MEDS: LISINOPRIL (20MG) 20 MG TABLET PO SCH (09:16)
[2021-07-14] MEDS: DOCUSATE SODIUM 100 MG CAPSULE PO SCH ×3 (09:16→16:55)
[2021-07-14] MEDS: FLUVOXAMINE MALEATE 50 MG TABLET PO SCH ×2 (09:16→16:55)
[2021-07-14] MEDS: ENSURE ENLIVE CHOC 237 ML CAN PO SCH ×3 (09:17→16:55)
[2021-07-14] MEDS: AMMONIUM LACTATE 227 GM BOTTLE TP SCH ×2 (09:19→16:56)
--- NOTE | 2021-07-14 13:30 | NUR ---
D/C Plan: Pt was discharged to [facility] ([facility]) [[address] [place] [address]; ). Pt was transported via ambulance around 1 PM. Pts point of contact, Eleanor Aguirre, , was notified. Upon discharge, the pt appeared to be in a euthymic mood and presented with a calm affect. Pt denied both suicidal and homicidal ideation as well as auditory and visual hallucinations. Pt will be under the care of a psychiatrist and casino shift manager, who will be assigned upon admission.
--- NOTE | 2021-07-14 16:00 | NUR ---
SS Note: 1:45 pm WARD notified that [facility] is no longer accepting pt. and will send him back to [facility]. [facility] [[id number] [facility]. [place]; ([phone]). WARD notified by Sebastáin KHAN that pt. has been accepted to [facility].
--- NOTE | 2021-07-14 16:30 | NUR ---
D/C Note: Pt. will be discharged to [facility] [[address] [facility]. [place]; ([phone]) on 07/14/2021. Pt. will be transported via ambulance. Pts point of contact, Eleanor Aguirre, , was notified. Currently, the pt. appears to be in a euthymic mood and presented with a calm affect. Pt denied both suicidal and homicidal ideation as well as auditory and visual hallucinations. Pt. is ambulatory with front wheel walker. Pt will be under the care of a psychiatrist, Dr. Escobar [[address] [facility], [address] [place] [address]; ] and license examiner, Fredrick Dubon [[address] [facility] [address] [place] [address]; . The choice of vendor form and multidisciplinary exit care form were done, printed, signed, and given to the patient.
--- NOTE | 2021-07-14 16:59 | NUR ---
GPS/RN REPORT GIVEN TO ALLAN CARRILLO AT [facility]. 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
--- NOTE | 2021-07-14 19:27 | NUR ---
GPS RN NOTE, RECEIVED PATIENT AWAKE AND IN BED, PATIENT HAS A COMPLAINT OF GENERALIZED PAIN AT 5 OUT OF 10 ON THE PAIN SCALE. PATIENT IS TAKING PAIN MEDICATION FOR THIS PAIN. PATIENT IS DISPLAYING NO S/S OF APPARENT DISTRESS AT THIS TIME. PATIENT BREATHING IS UNLABORED WITH EQUAL RISE AND FALL OF THE CHEST. PATIENT IS ALERT AND ORIENTED X 3 ON ROOM AIR WITH A SPO2 98%. PATIENT IS COMPLIANT WITH MEDICATIONS, PARANOID, ANXIOUS, AND COOPERATIVE. PATIENT DENIES SUICIDAL AND HOMICIDAL IDEATIONS AT THIS TIME. PATIENT EDUCATED ON THE USE OF THE CALL PERRY. PATIENT BED SIDE RAILS UP X 2 FOR SAFETY. PATIENT BED IS LOCKED, LOW, WITH BED ALARM ON. WILL CONTINUE TO MONITOR THIS PATIENT Q15 MINUTES WITH THE HELP OF STAFF TO MAINTAIN SAFETY.
--- NOTE | 2021-07-14 19:44 | NUR ---
GPS RN NOTE, PATIENT HAS A COMPLAINT OF FEELING ANXIOUS AND IS REQUESTING ATIVAN AT THIS TIME. PATIENT VITAL SIGNS ARE STABLE. GAVE ATIVAN 0.5MG PO Q6HR PRN ORDERED. WILL REASSESS FOR ANXIETY AND I WILL CONTINUE TO MONITOR THIS PATIENT.
[2021-07-14 20:52] VITALS: BP 182/105
[2021-07-14] MEDS: POLYETHYLENE GLYCOL 3350 17 GM POWD.PACK PO SCH (21:21)
[2021-07-14] MEDS: SENNOSIDES 8.6 MG TABLET PO SCH (21:21)
[2021-07-14] MEDS: MIRTAZAPINE 15 MG TABLET PO SCH (21:21)
[2021-07-14] MEDS: CLONIDINE HCL 0.1 MG TABLET PO PRN (21:22)
--- NOTE | 2021-07-14 21:22 | NUR ---
GPS RN NOTE, PATIENT VITAL SIGNS ARE FOLLOWS B/P 182/105, PULSE 88, RESPIRATIONS 19, TEMP 98.1,
--- NOTE | 2021-07-14 21:23 | NUR ---
GPS RN NOTE, PATIENT VITAL SIGNS ARE FOLLOWS B/P 182/105, PULSE 88, RESPIRATIONS 19, TEMP 98.1. PATIENT UNABLE TO BE DISCHARGED DUE TO HYPERTENSION. PAGED [facility] AND INFORMED JADE HINES DNP OF MY FINDINGS. JADE HINES DNP ORDERED CLONIDINE HCL 0.1MG PO Q6HR PRN TO BE GIVEN IF SYSTOLIC BLOOD PRESSURE IS GREATER THAN 160 OR IF DIASTOLIC BLOOD PRESSURE IS GREATER THAN 100. GAVE CLONIDINE HCL 0.1MG PO Q6HR PRN ORDERED. WILL REASSESS AND I WILL CONTINUE TO MONITOR THIS PATIENT WITH THE HELP OF STAFF.
--- NOTE | 2021-07-14 22:00 | NUR ---
GPS RN NOTE, PATIENT VITAL SIGNS ARE FOLLOWS B/P 148/95, PULSE 84, RESPIRATIONS 20, AND TEMP 98.2. CALLED [facility] TO RESCHEDULE A CONTRACT ADMINISTRATION SPECIALIST TO HAVE THIS PATIENT BROUGHT TO [facility] [address] [place] [address] [phone]. BUT [facility] NEXT SCHEDULED CONTRACT ADMINISTRATION SPECIALIST IS NOT TILL 12:00 NOON ON 07/15/21. [facility] AND INFORMED RECEIVING NURSE MERYL OF THE NEW TRANSPORT TIME. INFORMED STEREOPLOTTER OPERATOR AND DR BENDER OF MY FINDING. DR BENDER REASCENDED DISCHARGE ORDER TILL TOMORROW. WILL CONTINUE TO MONITOR THIS PATIENT WITH THE HELP OF STAFF.
[2021-07-14 22:24] VITALS: BP 148/98
[2021-07-14] MEDS: ZOLPIDEM TARTRATE 5 MG TABLET PO PRN (23:04)
--- NOTE | 2021-07-14 23:04 | NUR ---
GPS RN NOTE, PATIENT HAS A COMPLAINT OF NOT BEING ABLE TO SLEEP AND IS REQUESTING AMBIEN AT THIS TIME. PATIENT VITAL SIGNS ARE STABLE. GAVE AMBIEN 5MG PO PRN HS ORDERED. WILL REASSESS FOR INSOMNIA AND I WILL CONTINUE TO MONITOR THIS PATIENT.
[2021-07-15] MEDS: LORAZEPAM 0.5 MG TABLET PO PRN ×3 (04:01→12:49)
--- NOTE | 2021-07-15 04:01 | NUR ---
GPS RN NOTE, PATIENT HAS A COMPLAINT OF FEELING ANXIOUS AND IS REQUESTING ATIVAN AT THIS TIME. PATIENT VITAL SIGNS ARE STABLE. GAVE ATIVAN 0.5MG PO Q4HR PRN ORDERED. WILL REASSESS FOR ANXIETY AND I WILL CONTINUE TO MONITOR THIS PATIENT.
[2021-07-15] MEDS: HYDROCODONE/APAP 5/325MG TABLET PO PRN (06:07)
--- NOTE | 2021-07-15 06:07 | NUR ---
GPS RN NOTE, PATIENT HAS A COMPLAINT OF CHRONIC LOWER BACK PAIN AT 7 OUT 10 ON THE PAIN SCALE AND IS REQUESTING NORCO AT THIS TIME. PATIENT VITAL SIGNS ARE STABLE. GAVE NORCO 5-325 1 TAB PO Q6HR PRN ORDERED. WILL REASSESS PAIN AND I WILL CONTINUE TO MONITOR THIS PATIENT.
[2021-07-15 08:00] VITALS: BP_SYST 134; BP_SYST 160; BP_DIAS 69; BP_DIAS 99
[2021-07-15] MEDS: DOCUSATE SODIUM 100 MG CAPSULE PO SCH ×2 (08:29→12:08)
[2021-07-15] MEDS: FLUVOXAMINE MALEATE 50 MG TABLET PO SCH (08:29)
[2021-07-15] MEDS: CLONIDINE HCL 0.1 MG TABLET PO PRN (08:30)
[2021-07-15] MEDS: LISINOPRIL (20MG) 20 MG TABLET PO SCH (08:30)
[2021-07-15] MEDS: QUETIAPINE FUMARATE 100 MG TABLET PO SCH (08:30)
[2021-07-15] MEDS: AMMONIUM LACTATE 227 GM BOTTLE TP SCH (08:30)
[2021-07-15] MEDS: ENSURE ENLIVE CHOC 237 ML CAN PO SCH ×2 (08:32→12:08)
[2021-07-15] MEDS ORDERED: AMLODIPINE BESYLATE 10 MG TABLET PO SCH (09:00)
[2021-07-15 09:47] VITALS: BP 160/99
--- NOTE | 2021-07-15 10:21 | NUR ---
patient c/o pain, given norco 5-325 at this time. will reassess.
--- NOTE | 2021-07-15 13:34 | NUR ---
GPS RN NOTE: PATIENT DISCHARGE TO [facility] AT 1315. PICKED UP BY AMBULANCE. PATIENT IN STABLE CONDITION NO S/S DISTRESS NOTED, VSS, PATIENT AMBULATORY WITH W/C, A/OX3, COOPERATIVE AND COMPLIANT WITH MEDICATIONS , DENIES SI/HI AVH, DENIES FEELING DEPRESSED. EXIT CARE DONE PRINTED , SIGN AND GIVEN TO PATIENT , ALL BELONGINGS RETURNED TO PATIENT. PATIENT REFUSED SKIN ASSESSMENT, REFUSED VACCINATIONS. REPORT GIVEN TO FACILITY RN.
== END 2021-07-15 13:15 | DRG 885 ==
LOC: GPS 09:40
PROVIDERS: ADMIT Psychiatry & Neurology Psychiatry; ATTEND Internal Medicine
DX: F25.9 Schizoaffective disorder, unspecified (principal); R45.851 Suicidal ideations; F29 Unspecified psychosis not due to a substance or known physiological condition; F41.9 Anxiety disorder, unspecified; I10 Essential (primary) hypertension; M19.90 Unspecified osteoarthritis, unspecified site; G89.29 Other chronic pain; F10.10 Alcohol abuse, uncomplicated; Y90.9 Presence of alcohol in blood, level not specified; Z98.890 Other specified postprocedural states; F32.9 Major depressive disorder, single episode, unspecified; L84 Corns and callosities
CPT/HCPCS: 36415; 74018; 80053-TC; 80061-TC; 82962-TC; 87081-TC; 97112-TC; 97116-TC; 97530-TC; J7050; Q9963; Q9967

== ENCOUNTER 2021-09-19 10:00 | Outpatient (CLI) | payer MEDICARE, OTHER ==
[~2021-09-19 10:00] MED LIST: HYDR-4303 PO; LACT10SO3 PO; LISI20TA30 PO
== END 2021-09-19 23:59 | disposition home or self-care (01) ==
LOC: MSC 10:00
PROVIDERS: ATTEND Anesthesiology
DX: M54.16 Radiculopathy, lumbar region (principal); M62.830 Muscle spasm of back; G89.4 Chronic pain syndrome; M25.9 Joint disorder, unspecified; M79.605 Pain in left leg; M25.562 Pain in left knee; Z79.891 Long term (current) use of opiate analgesic; Z99.3 Dependence on wheelchair

== ENCOUNTER 2021-12-12 12:06 | Emergency (ER) | payer MEDICARE, OTHER ==
[~2021-12-12] VITALS: Ht 177.8 cm; Wt 62.1 kg
--- NOTE | 2021-12-12 12:20 | NUR ---
BIB [facility]BUL[facility] 714 FROM [facility] C/O CHRONIC ABDOMINAL PAIN AND CONSTIPATION X 5 YEARS. ENEMA THIS MORNING WAS UNSUCCESSFUL. PT +COVID ON 11/24. AAOX4, BREATHING EVEN AND UNLABORED, ON MONITOR. POX 98% ON RA.
--- NOTE | 2021-12-12 12:33 | NUR ---
BLOOD SAMPLE OBTAINED AND SENT TO LAB
[2021-12-12 13:40] LABS: BASOPHILS % (AUTO) 0.5 % (0.0-2.0); EOSINOPHILS % (AUTO) 1.6 % (0.0-6.0); HEMATOCRIT 36 % (39-51); LYMPHOCYTES # (AUTO) 1.6 K/uL (0.8-4.8); LYMPHOCYTES % (AUTO) 32.3 % (20.0-44.0); MEAN CORPUSCULAR HGB CONC 33 g/dl (31.0-36.0); MEAN CORPUSCULAR VOLUME 93 fL (80-96); MONOCYTES # (AUTO) 0.5 K/uL (0.1-1.30); MONOCYTES % (AUTO) 10.3 % (2.0-12.0); NEUTROPHILS # (AUTO) 2.7 K/uL (1.8-8.9); NEUTROPHILS % (AUTO) 55.3 % (43.0-81.0); PLATELET COUNT (AUTO) 142 K/uL (150-450); RED BLOOD CELL COUNT(AUTO) 3.84 MIL/uL (4.5-6.0); WHITE BLOOD COUNT (AUTO) 4.8 K/uL (4.3-11.0)
[2021-12-12 13:57] LABS: ALBUMIN 3.4 g/dL (3.4-5.0); BILIRUBIN,TOTAL 0.3 mg/dL (0.2-1.0); CALCIUM, SERUM 8.7 mg/dL (8.5-10.1); CREATININE 0.8 mg/dL (0.6-1.3); POTASSIUM 3.9 mmol/L (3.5-5.1); TOTAL PROTEIN, SERUM 6.7 g/dL (6.4-8.2)
--- NOTE | 2021-12-12 14:33 | NUR ---
pt laying in bed, awake, needs met
--- NOTE | 2021-12-12 15:47 | NUR ---
CALLED [facility] AND SET UP BLS TRANSPORT ETA 163
--- NOTE | 2021-12-12 16:34 | NUR ---
REPORT GIVEN TO KELSEY HANEY FOR GURPREET
--- NOTE | 2021-12-12 16:40 | NUR ---
IV removed. Catheter intact and site benign. Pressure and 4x4 applied to site. No bleeding noted.
--- NOTE | 2021-12-12 16:41 | NUR ---
Patient picked up by [facility] ambulance and discharged to facility in stable condition. Written and verbal after care instructions given. Patient verbalizes understanding of instruction.
[2021-12-12 16:45] VITALS: BP 128/75
== END 2021-12-12 16:46 | disposition home or self-care (01) ==
LOC: ER 12:10
DX: R10.84 Generalized abdominal pain (principal); I10 Essential (primary) hypertension; Z79.899 Other long term (current) drug therapy
CPT/HCPCS: 36415; 80053-TC; 85025-TC

== ENCOUNTER 2022-02-20 11:15 | Outpatient (CLI) | payer MEDICARE, OTHER | END 2022-02-23 23:59 | disposition home or self-care (01) | LOC: MSC 11:15 | PROVIDERS: ATTEND Anesthesiology | DX: G89.4 Chronic pain syndrome (principal); M54.16 Radiculopathy, lumbar region; M62.830 Muscle spasm of back; M79.662 Pain in left lower leg; M25.562 Pain in left knee; M62.81 Muscle weakness (generalized); M25.9 Joint disorder, unspecified; Z79.891 Long term (current) use of opiate analgesic ==